=== PATIENT | male | born 1980 | race Two or more races ===

== ENCOUNTER 2019-12-08 17:59 | Inpatient (IN) | payer SELFPAY ==
[~2019-12-08] VITALS: Ht 167.6 cm; Wt 91.2 kg
--- NOTE | 2019-12-08 18:54 | NUR ---
PT IN RESTROOM WHEN CALLED FOR TRIAGE
[2019-12-08] MEDS ORDERED: ASPIRIN 81 MG TABLET CHEW ONE (19:10)
[2019-12-08] MEDS ORDERED: SODIUM CHLORIDE FLUSH 10ML SYR IVF ONE (19:30)
[2019-12-08] MEDS ORDERED: ASPIRIN 81 MG TABLET CHEW PO ONE (19:30)
[2019-12-08] MEDS ORDERED: hydrALAzine 20 MG/ML, 1ML IV ONE ×2 (19:30→21:00)
[2019-12-08 19:33] LABS: BASOPHILS # (AUTO) 0.04 x10^3/uL (0-0.1); BASOPHILS % (AUTO) 1 % (0-1); EOSINOPHILS # (AUTO) 0.15 x10^3/uL (0-0.4); EOSINOPHILS % (AUTO) 2 % (1-7); LYMPHOCYTES # (AUTO) 2.22 x10^3/uL (1-3.4); LYMPHOCYTES % (AUTO) 25 % (22-44); MD NO; MEAN CORPUSCULAR HEMOGLOBIN 29.8 pg (27.5-34.5); MEAN CORPUSCULAR HGB CONC 34.2 g/dL (33.2-36.2); MEAN CORPUSCULAR VOLUME 87.1 fL (81-97); MEAN PLATELET VOLUME 9.4 fL (7.4-10.4); MONOCYTES # (AUTO) 0.76 x10^3/uL (0.2-0.8); MONOCYTES % (AUTO) 9 % (2-9); NEUTROPHILS # (AUTO) 5.74 x10^3/uL (1.8-6.8); NEUTROPHILS % (AUTO) 64 % (42-75); PLATELET COUNT 239 x10^3/uL (130-400); RED BLOOD COUNT 5.23 x10^6/uL (4.38-5.82)
[2019-12-08] MEDS ORDERED: hydrALAzine 20 MG/ML, 1ML ONE ×2 (19:36→20:54)
[2019-12-08 19:43] LABS: ALANINE AMINOTRANSFERASE 41 U/L (12-78); ALBUMIN 3.6 g/dL (3.4-5.0); ANION GAP 5 mmol/L (5-15); CALCIUM 8.9 mg/dL (8.5-10.1); CHLORIDE 106 mmol/L (98-107); CREATININE 1.29 mg/dL (0.7-1.3)
[2019-12-08 19:48] LABS: ALKALINE PHOSPHATASE 120 U/L (45-117); BILIRUBIN,TOTAL 0.3 mg/dL (0.2-1.0); T4 (THYROXINE) 8.9 mcg/dL (4.5-12.1); TOTAL PROTEIN 7.1 g/dL (6.4-8.2)
--- NOTE | 2019-12-08 20:00 | NUR ---
PT REPORTS HEADACHE FOR X2 WEEKS WORSENUING X3 DAYS. REPORTS CHRONIC HTN. PT ALSO REPORTS CP X1 DAY WITH INTERMITTENT PALPARTIONS, AND SOB. PT DENIES OTHER C/O AT THIS TIME. PT MEDIATED PER MAR. CONNECTED TO ALL MONITORING, CALL LIGHT WITHIN REACH AND FAMILY AT FOR SUPPORT.
--- NOTE | 2019-12-08 20:00 | NUR ---
ESTATE ATTORNEY USED #[id number] FOR ERMD AND THIS NURSE'S ASSESSMENT.
[2019-12-08 20:23] LABS: MICROSCOPIC NOT IND
[2019-12-08 20:35] LABS: CULTURE INDICATED? NO
[2019-12-08] MEDS ORDERED: LISINOPRIL 5 MG TABLET PO ONE (21:30)
[2019-12-08] MEDS ORDERED: BISACODYL 10 MG SUPP PR PRN (21:30)
[2019-12-08] MEDS ORDERED: POLYETHYLENE GLYCOL 17 GM PACKET PO PRN (21:30)
[2019-12-08] MEDS ORDERED: hydrALAzine 20 MG/ML, 1ML IVPush PRN (21:30)
[2019-12-08] MEDS: SODIUM CHLORIDE FLUSH 10ML SYR IVF SCH (21:30)
[2019-12-08] MEDS ORDERED: ACETAMINOPHEN 325 MG TABLET PO PRN (21:30)
[2019-12-08] MEDS ORDERED: POTASSIUM CHLORIDE 20 MEQ TAB.ER.PRT PO ONE (21:30)
[2019-12-08] MEDS ORDERED: ONDANSETRON ODT 4 MG PO PRN (21:30)
[2019-12-08] MEDS ORDERED: POTASSIUM CHLORIDE 20 MEQ TAB.ER.PRT ONE (21:42)
[2019-12-08] MEDS ORDERED: LISINOPRIL 10 MG TABLET ONE (21:43)
--- NOTE | 2019-12-08 22:02 | NUR ---
REPORT TO FABRICIO MARTINEZ.
[2019-12-08] MEDS: CARVEDILOL 12.5 MG TABLET PO SCH (23:05)
[2019-12-08] MEDS ORDERED: NITROGLYCERIN 0.4 MG BOTTLE (25 TABS) SL ONE (23:30)
[2019-12-08 23:53] VITALS: BP 144/94
[2019-12-09 00:22] VITALS: BP 138/82
[2019-12-09 02:05] LABS: TROPONIN I 0.168 ng/mL (0.000-0.045)
[2019-12-09 03:46] VITALS: BP 139/90
[2019-12-09 07:27] VITALS: BP 124/77
[2019-12-09 08:42] LABS: BASOPHILS # (AUTO) 0.03 x10^3/uL (0-0.1); BASOPHILS % (AUTO) 0 % (0-1); EOSINOPHILS # (AUTO) 0.09 x10^3/uL (0-0.4); EOSINOPHILS % (AUTO) 1 % (1-7); LYMPHOCYTES # (AUTO) 1.61 x10^3/uL (1-3.4); LYMPHOCYTES % (AUTO) 19 % (22-44); MD NO; MEAN CORPUSCULAR HEMOGLOBIN 29.7 pg (27.5-34.5); MEAN CORPUSCULAR HGB CONC 33.9 g/dL (33.2-36.2); MEAN CORPUSCULAR VOLUME 87.8 fL (81-97); MEAN PLATELET VOLUME 9.2 fL (7.4-10.4); MONOCYTES # (AUTO) 0.66 x10^3/uL (0.2-0.8); MONOCYTES % (AUTO) 8 % (2-9); NEUTROPHILS # (AUTO) 5.99 x10^3/uL (1.8-6.8); NEUTROPHILS % (AUTO) 71 % (42-75); PLATELET COUNT 236 x10^3/uL (130-400); RED BLOOD COUNT 5.07 x10^6/uL (4.38-5.82); RED CELL DISTRIBUTION WIDTH 13.5 % (9.4-14.8)
[2019-12-09 08:52] LABS: ANION GAP 5 mmol/L (5-15); CALCIUM 8.7 mg/dL (8.5-10.1); CHLORIDE 109 mmol/L (98-107)
[2019-12-09 08:57] LABS: CREATININE 1.19 mg/dL (0.7-1.3)
[2019-12-09] MEDS: CARVEDILOL 12.5 MG TABLET PO SCH ×2 (09:42→18:17)
[2019-12-09] MEDS: SENNA/DOCUSATE TABLET PO SCH (10:14)
[2019-12-09] MEDS: SODIUM CHLORIDE FLUSH 10ML SYR IVF SCH ×2 (10:14→21:00)
[2019-12-09] MEDS ORDERED: POTASSIUM CHLORIDE 20 MEQ TAB.ER.PRT PO ONE (10:30)
[2019-12-09] MEDS: ASPIRIN 81 MG TABLET EC PO SCH (11:05)
[2019-12-09 11:25] LABS: CHOLESTEROL, TOTAL 163 mg/dL (140-239); TRIGLYCERIDES 152 mg/dL (50-200); VLDL CHOLESTEROL 30 mg/dL (0-25)
[2019-12-09 11:28] LABS: CHOL/HDL RATIO 4.2; HDL CHOL % 24 % (26-37); HDL CHOLESTEROL (DIRECT) 39 mg/dL (40-60); LDL CHOLESTEROL,CALCULATED 94 mg/dL (54-169); LDL/HDL RATIO 2.4 (0.5-3.0)
[2019-12-09 13:22] VITALS: BP 114/68
[2019-12-09] MEDS ORDERED: REGADENOSON 0.4 MG/5 ML SYRINGE ONE (14:53)
[2019-12-09 19:17] VITALS: BP 144/95
[2019-12-10 02:14] VITALS: BP 142/94
[2019-12-10 05:24] VITALS: BP 142/93
[2019-12-10] MEDS: ASPIRIN 81 MG TABLET EC PO SCH (05:25)
[2019-12-10] MEDS: CARVEDILOL 12.5 MG TABLET PO SCH (05:26)
[2019-12-10 05:52] LABS: TROPONIN I 0.896 ng/mL (0.000-0.045)
[2019-12-10 07:50] VITALS: BP 148/90
[2019-12-10] MEDS: SODIUM CHLORIDE FLUSH 10ML SYR IVF SCH (08:22)
[2019-12-10] MEDS: SENNA/DOCUSATE TABLET PO SCH (08:23)
[2019-12-10 08:47] LABS: ANION GAP 7 mmol/L (5-15); CALCIUM 8.4 mg/dL (8.5-10.1); CHLORIDE 110 mmol/L (98-107); CREATININE 1.23 mg/dL (0.7-1.3)
[2019-12-10] MEDS ORDERED: LISINOPRIL 5 MG TABLET PO SCH (09:00)
[2019-12-10] MEDS ORDERED: CARV12.52 PO (11:29)
[2019-12-10] MEDS ORDERED: ASPI81TA45 PO (11:29)
[2019-12-10] MEDS ORDERED: LISI5TAB7 PO (11:29)
[2019-12-10 11:57] VITALS: BP 158/96
== END 2019-12-10 12:55 | disposition home or self-care (01) | DRG 281 ==
LOC: ED 21:42 → EDIP 21:51 → 3N 22:25 → 5SO 12-09 03:45 → DCLOUNGE 12-10 12:38
PROVIDERS: ADMIT Internal Medicine; ATTEND Internal Medicine
DX: I21.4 Non-ST elevation (NSTEMI) myocardial infarction (principal); I16.1 Hypertensive emergency; E87.6 Hypokalemia; E66.9 Obesity, unspecified; R73.9 Hyperglycemia, unspecified; F17.210 Nicotine dependence, cigarettes, uncomplicated; I10 Essential (primary) hypertension; Z79.899 Other long term (current) drug therapy; Z82.49 Family history of ischemic heart disease and other diseases of the circulatory system
CPT/HCPCS: 36415; 70450; 71045; 78452; 80048; 80053; 80061; 81003; 83880; 84436; 84443; 84484; 85025; 93005; 93017; 93306; 96374; 96376; G0378; J2785; A9502; C9898; J0360